=== PATIENT | male | born 1985 | race American Indian/Alaskan Native ===

== ENCOUNTER 2017-04-15 17:35 | Emergency (ER) | payer MEDICAID ==
[2017-04-15 17:43] VITALS: BMI 25.9
[2017-04-15 17:51] VITALS: BP 114/73; PULSE 67; RESP 16; TEMP 98.4; O2SAT 98
--- NOTE | 2017-04-15 18:02 | ED PDOC ---
Arrival/HPI - General Chief Complaint: Trauma Time Seen by Provider: 04/15/17 17:49 Historian: Patient - History of Present Illness Narrative History of Present Illness (Text): 04/15/17 20:09 31yo male present with complaint of lower lip pain and upper incisor pain s/p trauma. States he cracked his upper tooth and hit his lip on a gate. States the gate "swung" and hit his mouth. Denies any other complaint. Past Medical History - Provider Review Nursing Documentation Reviewed: Yes - Psychiatric Hx Substance Use: Yes - Anesthesia Hx Anesthesia: No Family/Social History - Physician Review Nursing Documentation Reviewed: Yes Family/Social History: Unknown Family HX Smoking Status: Never Smoked Hx Alcohol Use: No Hx Substance Use: Yes Substance used: Marijuana Allergies/Home Meds Allergies/Adverse Reactions: Allergies No Known Allergies Allergy (Verified 04/15/17 17:43) Review of Systems - Physician Review All systems were reviewed & negative as marked: Yes - Review of Systems Constitutional: Normal Eyes: Normal ENT: Other (Tooth ache) Respiratory: Normal Cardiovascular: Normal Gastrointestinal: Normal Genitourinary Male: Normal Musculoskeletal: Normal Skin: Normal Neurological: Normal Endocrine: Normal Hemo/Lymphatic: Normal Psychiatric: Normal Physical Exam Vital Signs Reviewed: Yes Vital Signs Temp Pulse Resp BP Pulse Ox 04/15/17 17:46 98.4 F 67 16 114/73 98 Temperature: Afebrile Blood Pressure: Normal Pulse: Regular Respiratory Rate: Normal Appearance: Positive for: Well-Appearing, Non-Toxic, Comfortable Pain Distress: None Mental Status: Positive for: Alert and Oriented X 3 - Systems Exam Head: Present: Atraumatic, Normocephalic Pupils: Present: PERRL Extroacular Muscles: Present: EOMI Conjunctiva: Present: Normal Mouth: Present: Moist Mucous Membranes. No: Normal Lips (Mild swelling of lower lip noted with small abrasion), Normal Teeth (2upper incisor tooth noted to be cracked. Not loose) Neck: Present: Normal Range of Motion Respiratory/Chest: Present: Clear to Auscultation, Good Air Exchange. No: Respiratory Distress, Accessory Muscle Use Cardiovascular: Present: Regular Rate and Rhythm, Normal S1, S2. No: Murmurs Abdomen: Present: Normal Bowel Sounds. No: Tenderness, Distention, Peritoneal Signs Back: Present: Normal Inspection Upper Extremity: Present: Normal Inspection. No: Cyanosis, Edema Lower Extremity: Present: Normal Inspection. No: Edema Neurological: Present: GCS=15, CN II-XII Intact, Speech Normal Skin: Present: Warm, Dry, Normal Color. No: Rashes Psychiatric: Present: Alert, Oriented x 3, Normal Insight, Normal Concentration Medical Decision Making - Medication Orders Current Medication Orders: Discontinued Medications Amoxicillin (Amoxil 500 Mg Cap) 500 mg PO STAT STA PRN Reason: Protocol Stop: 04/15/17 17:59 Last Admin: 04/15/17 18:10 Dose: 500 mg Ketorolac Tromethamine (Toradol) 60 mg IM STAT STA Stop: 04/15/17 18:00 Last Admin: 04/15/17 18:11 Dose: 60 mg Disposition/Present on Arrival - Present on Arrival Any Indicators Present on Arrival: No History of DVT/PE: No History of Uncontrolled Diabetes: No Urinary Catheter: No History of Decub. Ulcer: No History Surgical Site Infection Following: None - Disposition Have Diagnosis and Disposition been Completed?: Yes Diagnosis: Lip abrasion, Dental trauma Disposition: HOME/ ROUTINE Disposition Time: 18:05 Patient Plan: Discharge Condition: STABLE Discharge Instructions (ExitCare): Acute Dental Trauma (ED) Additional Instructions: Follow up with a Dentist Return to ED for any new symptoms Prescriptions: Amoxicillin 500 mg PO TID #21 tablet Ibuprofen [Motrin Tab] 600 mg PO Q6 #20 tab Referrals: Sam Jackson DMD [Non-Staff] - Follow up with primary
== END 2017-04-15 18:34 | disposition home or self-care (01) ==
LOC: ED 17:35
DX: S00.511A Abrasion of lip, initial encounter (principal); S09.8XXA Other specified injuries of head, initial encounter; W22.8XXA Striking against or struck by other objects, initial encounter; Y93.89 Activity, other specified; Y92.89 Other specified places as the place of occurrence of the external cause
CPT/HCPCS: 96372; 99283; J1885